=== PATIENT | male | born 1965 | race African-American/Black ===

== ENCOUNTER 2021-05-11 03:32 | Emergency (ER) | payer MEDICAID ==
[~2021-05-11] VITALS: Ht 167.6 cm; Wt 83.0 kg
[2021-05-11] MEDS ORDERED: ASPIRIN 81MG TABLET PO ONE (07:30)
[2021-05-11 08:22] LABS: EOSINOPHILS % 0.9 % (0.0-5.0); HEMATOCRIT. 42.9 % (42.0-52.0); HEMOGLOBIN. 14.7 g/dL (14.0-18.0); LYMPHOCYTES % 42.8 % (20.0-50.0); MEAN CORPUSCULAR HEMOGLOBIN 34.1 pg (28.0-32.0); MEAN CORPUSCULAR VOLUME 99.5 fL (80.0-94.0); MEAN PLATELET VOLUME 7.1 fl (7.4-10.4); MONOCYTES % 10.2 % (2.0-8.0); NEUTROPHILS % 45.1 % (40.0-76.0); PLATELET 276 x1000/uL (130-400); RED BLOOD CELL COUNT 4.31 mill/uL (4.7-6.1); RED CELL DISTRIBUTION WIDTH 13.6 % (11.6-14.6)
[2021-05-11 08:30] LABS: CHLORIDE 105 mEq/L (98-107)
[2021-05-11 09:16] VITALS: BP 144/103
== END 2021-05-11 10:03 | disposition home or self-care (01) ==
LOC: ER 03:32
DX: R07.89 Other chest pain (principal); F41.9 Anxiety disorder, unspecified
CPT/HCPCS: 36415; 71045; 80053; 83880; 84484; 85025; 93005; 99285; Z7610

== ENCOUNTER 2022-01-17 05:52 | Emergency (ER) | payer MEDICAID ==
[~2022-01-17] VITALS: Ht 167.6 cm; Wt 88.9 kg
[2022-01-17] MEDS ORDERED: ASPIRIN 81MG TABLET PO ONE (06:30)
[2022-01-17] MEDS ORDERED: NITROGLYCERIN OINT 1GM/INCH UDPKT TD ONE (06:30)
[2022-01-17] MEDS ORDERED: NITROGLYCERIN OINT 1GM/INCH UDPKT TD NR (07:45)
[2022-01-17] MEDS ORDERED: ASPIRIN 81MG TABLET PO NR (07:45)
[2022-01-17 09:04] LABS: BASOPHILS % 0.6 % (0.0-2.0); EOSINOPHILS % 1.7 % (0.0-5.0); HEMATOCRIT. 42.4 % (42.0-52.0); HEMOGLOBIN. 14.6 g/dL (14.0-18.0); LYMPHOCYTES % 27.7 % (20.0-50.0); MEAN CORPUSCULAR HEMOGLOBIN 33.3 pg (28.0-32.0); MEAN PLATELET VOLUME 7.3 fl (7.4-10.4); MONOCYTES % 9.9 % (2.0-8.0); NEUTROPHILS % 60.1 % (40.0-76.0); PLATELET 215 x1000/uL (130-400); RED BLOOD CELL COUNT 4.37 mill/uL (4.7-6.1); RED CELL DISTRIBUTION WIDTH 12.6 % (11.6-14.6)
[2022-01-17 09:12] LABS: CHLORIDE 107 mEq/L (98-107)
[2022-01-17 13:22] VITALS: BP 148/98
== END 2022-01-17 13:24 | disposition home or self-care (01) ==
LOC: ER 05:52
DX: R07.89 Other chest pain (principal); I10 Essential (primary) hypertension; R79.89 Other specified abnormal findings of blood chemistry; M79.605 Pain in left leg
CPT/HCPCS: 36415; 71045; 80053; 83880; 84484; 85025; 85379; 93005; 93970; 99285